=== PATIENT | female | born 1995 | race Caucasian/White ===

== ENCOUNTER 2018-05-28 13:12 | Emergency (ER) | payer OTHER ==
[~2018-05-28] VITALS: Ht 152.4 cm; Wt 61.2 kg
[2018-05-28] MEDS ORDERED: ACET32TAB PO (13:20)
[2018-05-28] MEDS ORDERED: ONDANSETRON 4 MG ORAL DISINTEGRATING TAB (Q0162 PER 1MG) PO ONE (14:45)
[2018-05-28] MEDS ORDERED: IBUPROFEN 800 MG TAB PO ONE (14:45)
[2018-05-28 15:17] LABS: INFLUENZA A AMPLIFICATION NEGATIVE (NEGATIVE); INFLUENZA B AMPLIFICATION NEGATIVE (NEGATIVE)
[2018-05-28 15:54] VITALS: BP 103/63
[2018-05-28] MEDS ORDERED: IBUP-1022 PO (15:59)
[2018-05-28] MEDS ORDERED: ACET500T15 PO (15:59)
[2018-05-28] MEDS ORDERED: ONDA4TAB6 PO (15:59)
[2018-05-28] MEDS ORDERED: ACETAMINOPHEN 325 MG TAB PO ONE (16:00)
== END 2018-05-28 16:13 | disposition home or self-care (01) ==
LOC: M ED 13:12
DX: B34.9 Viral infection, unspecified (principal)
CPT/HCPCS: 81001; 81025; 87631; 99284; Q0162